=== PATIENT | male | born 1990 | race Hispanic/Latino ===

== ENCOUNTER 2016-05-26 11:24 | Emergency (ER) | payer OTHER ==
[2016-05-26 11:36] VITALS: TEMP 97.9; O2SAT 100
[2016-05-26 12:32] VITALS: BP 120/69
[2016-05-26] MEDS ORDERED: Sodium Chloride 0.9% 1,000 ML IV ONE (12:36)
--- NOTE | 2016-05-26 12:56 | C.PDOC ---
History Of Present Illness 25 y/o male presents to the ED complaining of episode of palpitations, chest pain, nausea, and shortness of breath this morning while taking a test. He reports past history of similar but states that during the last couple of weeks it has happened 3-4 times. Patient also notes that he has been feeling "down and neglected" like "everyone is out to get [him]." He states he has been feeling depressed for 3-4 months. Patient reports that at school they give " more and more work" and "if you fail a test they make you repeat the whole year. " He notes that when he told his teacher he wasn't feeling well today "the teacher didn't care." Patient denies any leg pain or swelling, arm pain, cough, fever, dizziness, or other complaints. He reports family history of heart disease. Time Seen by Provider: 05/26/16 11:55 Chief Complaint (Nursing): Chest Pain History Per: Patient History/Exam Limitations: no limitations Onset/Duration Of Symptoms: Days, Intermittent Episodes, Persistent Current Symptoms Are (Timing): Better Quality: Tightness Recent travel outside of the [place]: No Past Medical History Reviewed: Historical Data, Nursing Documentation, Vital Signs Vital Signs: Last Vital Signs Temp 97.9 F 05/26/16 11:32 Pulse 109 H 05/26/16 14:28 Resp 20 05/26/16 14:28 BP 120/69 05/26/16 12:07 Pulse Ox 100 05/26/16 19:35 - Medical History PMH: No Chronic Diseases Surgical History: No Surg Hx Family History: States: No Known Family Hx - Social History Hx Tobacco Use: No Hx Alcohol Use: No Hx Substance Use: No - Immunization History Hx Tetanus Toxoid Vaccination: No Hx Influenza Vaccination: No Hx Pneumococcal Vaccination: No Review Of Systems Except As Marked, All Systems Reviewed And Found Negative. Constitutional: Negative for: Fever Cardiovascular: Positive for: Chest Pain, Palpitations Respiratory: Positive for: Shortness of Breath. Negative for: Cough Gastrointestinal: Positive for: Nausea Musculoskeletal: Negative for: Arm Pain, Leg Pain (or swelling) Neurological: Negative for: Dizziness Psych: Positive for: Anxiety, Depression Physical Exam - Physical Exam Appears: Non-toxic, No Acute Distress Skin: Normal Color, Warm, Dry, No Rash Head: Atraumatic, Normacephalic Eye(s): bilateral: Normal Inspection, PERRL, EOMI Oral Mucosa: Moist Neck: Normal ROM Chest: Symmetrical, No Tenderness Cardiovascular: Rhythm Regular, Other (tachycardic) Respiratory: Normal Breath Sounds, No Rales, No Rhonchi, No Wheezing Gastrointestinal/Abdominal: Normal Exam, Soft, No Tenderness Back: Normal Inspection, No CVA Tenderness Extremity: Normal ROM, No Tenderness, No Swelling Neurological/Psych: Oriented x3, Normal Speech, Normal Cognition, Normal Motor Gait: Steady ED Course And Treatment - Laboratory Results Result Diagrams: 05/26/16 13:10 05/26/16 13:10 O2 Sat by Pulse Oximetry: 100 (ra) Pulse Ox Interpretation: Normal Medical Decision Making Medical Decision Making: Old records reviewed, patient was seen for similar symptoms last year. and had tachycardia as well, CT to rule out PE done and was negative for PE. Plan: * Blood Work * Urinalysis * Crisis Evaluation * Xanax PO, IV Fluids Patient was instructed that he is still very tachycardiac and needs further evaluation. Patient states that he needs to study and he wishes to leave the emergency department against medical advice. Advised to follow up with medical doctor in 1 -2 days and return to the ED at any time for new or concerning symptoms. Disposition - Disposition Referrals: Susan Vázquez MD [Staff Provider] - Disposition: AGAINST MEDICAL ADVICE Disposition Time: 14:05 Condition: FAIR Additional Instructions: Follow up with the medical doctor within 1-2 days. Return if worsened. Prescriptions: Alprazolam [Xanax] 0.25 mg PO BID PRN #8 tablet PRN Reason: Anxiety Instructions: Anxiety (ED) Forms: School Excuse - Clinical Impression Clinical Impression: Anxiety, Tachycardia - PA / SHANKER OUT / Resident Statement MD/DO has reviewed & agrees with the documentation as recorded. - Scribe Statement The provider has reviewed the documentation as recorded by the Scribe (Shanae Zurita) All medical record entries made by the Scribe were at my direction and personally dictated by me. I have reviewed the chart and agree that the record accurately reflects my personal performance of the history, physical exam, medical decision making, and the department course for this patient. I have also personally directed, reviewed, and agree with the discharge instructions and disposition.
[2016-05-26 13:17] LABS: BASO % 0.8 % (0.0-2.0); EOS % 1.2 % (0.0-4.0); HEMATOCRIT 42.3 % (35.0-51.0); LYMPH # 1.4 K/uL (1.0-4.3); LYMPH % 38.9 % (20.0-40.0); MEAN CELL VOLUME 74.4 fL (80.0-94.0); MEAN CORPUSCULAR HEMOGLOBIN 24.1 pg (27.0-31.0); MEAN CORPUSCULAR HGB CONC 32.4 g/dL (33.0-37.0); MEAN PLATELET VOLUME 7.9 fL (7.2-11.7); MONO # 0.3 K/uL (0.0-0.8); MONO % 8.8 % (0.0-10.0); NRBC % 0.3 % (0.0-2.0); RED CELL DISTRIBUTION WIDTH 13.8 % (11.5-14.5); WHITE BLOOD COUNT 3.5 K/uL (4.8-10.8)
[2016-05-26 13:23] LABS: CHLORIDE 100 mmol/L (98-107)
[2016-05-26 13:24] LABS: SODIUM 140 mmol/L (132-148)
[2016-05-26 13:26] LABS: ALB/GLOB RATIO 1.3 (1.0-2.1); AST/SGOT 19 U/L (17-59); BILIRUBIN,TOTAL 0.4 mg/dL (0.2-1.3); CARBON DIOXIDE 25 mmol/L (22-30); GFR AFRICAN-AMERICAN > 60; TOTAL PROTEIN 7.8 g/dL (6.3-8.3)
[2016-05-26 13:27] LABS: ALKALINE PHOSPHATASE 55 U/L (38-126); ALT/SGPT 27 U/L (21-72); BLOOD UREA NITROGEN 11 mg/dL (9-20); CALCIUM 9.2 mg/dl (8.6-10.4); GLUCOSE,RANDOM 92 mg/dL (75-110)
[2016-05-26 14:28] VITALS: PULSE 109; RESP 20
== END 2016-05-26 14:28 | disposition left against medical advice (07) ==
LOC: C.ER 11:24
DX: F41.9 Anxiety disorder, unspecified (principal); R00.0 Tachycardia, unspecified
CPT/HCPCS: 80053; 85025; 99285; J7040

== ENCOUNTER 2016-12-01 11:23 | Emergency (ER) | payer OTHER ==
[2016-12-01 11:38] VITALS: O2SAT 100
--- NOTE | 2016-12-01 11:58 | C.PDOC ---
History Of Present Illness 25 year old male presents to the ED for evaluation of palpitations and shortness of breath which began while taking an exam at school earlier today. Patient states he felt like his heart was "pounding so hard" and felt like he could not breath. Patient has been seen in the ED previously for similar complaints and was instructed to follow up with his PMD. Patient also admitted to excessive caffeine intake. Patient states he has not followed up with a PMD and still drinks aorund 4-5 cups of coffee per day. Patient denies fever, chills , chest pain. Time Seen by Provider: 12/01/16 11:42 Chief Complaint (Nursing): Palpitations Past Medical History Vital Signs: Last Vital Signs Temp 98.3 F 12/01/16 11:32 Pulse 102 H 12/01/16 12:39 Resp 10 L 12/01/16 12:39 BP 100/61 12/01/16 12:39 Pulse Ox 100 12/01/16 12:49 - Medical History PMH: Denies: Diabetes, Hepatitis, HIV, HTN, Seizures, Sexually Transmitted Disease Family History: States: Unknown Family Hx - Social History Hx Tobacco Use: No Hx Alcohol Use: No Hx Substance Use: No - Immunization History Hx Tetanus Toxoid Vaccination: No Hx Influenza Vaccination: No Hx Pneumococcal Vaccination: No Review Of Systems Cardiovascular: Positive for: Palpitations. Negative for: Chest Pain Respiratory: Positive for: Shortness of Breath Physical Exam - Physical Exam Appears: Non-toxic, No Acute Distress, Other (anxious) Skin: Normal Color, Warm, Dry Head: Atraumatic, Normacephalic Eye(s): bilateral: Normal Inspection Oral Mucosa: Moist Neck: Supple Chest: Symmetrical, No Deformity, No Tenderness, Other (tachycardic) Cardiovascular: Rhythm Regular, No Murmur Respiratory: Normal Breath Sounds, No Rales, No Rhonchi, No Wheezing Extremity: Normal ROM, Capillary Refill (less than 2 seconds) Neurological/Psych: Oriented x3, Normal Speech, Normal Cognition Gait: Steady ED Course And Treatment ECG Rhythm: Sinus Tachycardia Rate From EC O2 Sat by Pulse Oximetry: 100 (on RA) Pulse Ox Interpretation: Normal Progress - Re-Evaluation Re-evaluation Note: 12/01/16 13:48 IMPROVED. PT GIVEN REPEAT INSTRUCTION TO LIMIT CAFFEINE INTAKE AND FU PMD - Data Reviewed Data Reviewed: EKG, Old records Disposition Counseled Patient/Family Regarding: Studies Performed, Diagnosis, Need For Followup - Disposition Referrals: YOUR,PMD [Other] Disposition: HOME/ ROUTINE Disposition Time: 13:49 Condition: IMPROVED Instructions: Anxiety (ED), Palpitations (ED) Forms: [employer] ([place]), School Excuse - Clinical Impression Clinical Impression: Palpitations, Anxiety - Scribe Statement The provider has reviewed the documentation as recorded by the Scribe (Alexandra Conrad) Provider Attestation: All medical record entries made by the Scribe were at my direction and personally dictated by me. I have reviewed the chart and agree that the record accurately reflects my personal performance of the history, physical exam, medical decision making, and the department course for this patient. I have also personally directed, reviewed, and agree with the discharge instructions and disposition.
[2016-12-01 14:27] VITALS: BP 128/82; PULSE 96; RESP 20; TEMP 98
== END 2016-12-01 14:27 | disposition home or self-care (01) ==
LOC: C.ER 11:23
DX: F41.9 Anxiety disorder, unspecified (principal); R00.2 Palpitations